=== PATIENT | female | born 1955 | race Caucasian/White ===

== ENCOUNTER 2024-02-10 06:31 | Emergency (ER) | payer BC, OTHER ==
[~2024-02-10] VITALS: Ht 167.6 cm; Wt 91.0 kg
[2024-02-10] MEDS ORDERED: DEXAMETHASONE 1MG TABLET PO ONE (06:45)
[2024-02-10] MEDS: DEXAMETHASONE 4MG TABLET PO SCH (07:20)
[2024-02-10] MEDS: DEXAMETHASONE 6MG TABLET PO SCH (07:21)
[2024-02-10 08:30] VITALS: PULSE 82; RESP 16; O2SAT 100
[2024-02-10] MEDS: ALBUTEROL (0.083%) 2.5MG/3ML NEB HHN SCH (08:30)
[2024-02-10] MEDS: IPRATROPIUM BROMIDE (0.02%) 0.5MG/2.5ML NEB HHN STA (08:30)
[2024-02-10] MEDS: IPRATROPIUM BROMIDE (0.02%) 0.5MG/2.5ML NEB ONE (08:32)
[2024-02-10 10:28] VITALS: BP 127/83; PULSE 84; RESP 16; TEMP 37.00296; O2SAT 100
== END 2024-02-10 10:31 | disposition home or self-care (01) ==
LOC: ER 06:31
DX: J45.901 Unspecified asthma with (acute) exacerbation (principal); I10 Essential (primary) hypertension
CPT/HCPCS: 99291; 71045; 94640; 93005; J8540